=== PATIENT | male | born 1985 | race Caucasian/White ===

== ENCOUNTER 2020-03-03 08:39 | Inpatient (IN) | payer SELFPAY ==
[2020-03-03 08:46] VITALS: BP 141/97; PULSE 58; RESP 18; TEMP 36.4; O2SAT 99; BMI 22.3
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
[2020-03-03 08:54] VITALS: RESP 16
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
[2020-03-03 09:19] LABS: Bilirubin Urine Neg (NEGATIVE); Blood Urine Neg (Negative); Glucose Urine UA Norm (Normal); Ketones Urine Negative (Negative); Leukocyte Esterase Urine Negative (Negative); Nitrate Urine Negative (Negative); Protein Urine Neg (Negative); Urine Appearance Clear (CLEAR); Urine Color Yellow (Yellow); Urobilinogen Urine Norm (Negative); pH Urine 5 (5-7)
[2020-03-03 09:24] LABS: Basophils # 0.1 10^3/uL (0.0-0.1); Basophils % 0.9 %; Eosinophils # 0.5 10^3/uL (0.0-0.8); Eosinophils % 5.7 %; Hematocrit 49.5 % (42.0-52.0); Hemoglobin 16.3 g/dL (11.7-16.6); Lymphocytes # 1.9 10^3/uL (0.8-4.8); Lymphocytes % 21.9 %; Mean Corpuscular HGB Conc 32.9 g/dL (30.0-36.0); Mean Corpuscular Hemoglobin 29.8 pg (28.0-34.0); Mean Corpuscular Volume 90.5 fL (80-94); Monocytes # 0.6 10^3/uL (0.2-0.9); Neutrophils # 5.7 10^3/uL (1.8-7.7); Nucleated Red Blood Cells % 0 %; Platelet Count 244 10^3/cmm (130-400); Red Blood Count 5.47 10^6/uL (4.1-5.3); Red Cell Distribution Width 12.2 % (12.1-15.1); White Blood Count 8.8 10^3/uL (4.0-10.0)
[2020-03-03 09:27] LABS: Alanine Aminotransferase 13 U/L (0-41); Albumin Level 4.5 g/dL (3.5-5.2); Alcohol Level 77 mg/dL (0-10); Alkaline Phosphatase 92 IU/L (40-130); Anion Gap 14.8 (5-19); Aspartate Amino Transferase 20 U/L (0-40); Blood Urea Nitrogen 11 mg/dL (6-20); Calcium 8.6 mg/dL (8.5-10.5); Carbon Dioxide 26 mmol/L (22-29); Chloride 102 mmol/L (98-107); Globulin 2.3 g/dL (1.3-4.6); Glomerular Filtration Rate 86.6 mL/min (90-130); Glucose 114 mg/dL (65-115); Osmolality Calculated 285 mOsm/kg (285-295); Potassium 3.8 mmol/L (3.5-5.1); Sodium 139 mmol/L (136-145); Total Bilirubin 0.3 mg/dL (0.15-1.2); Total Protein 6.8 g/dL (6.6-8.7)
[2020-03-03 09:28] LABS: Amphetamines Screen Urine Positive (Negative); Barbiturates Screen Urine Negative (Negative); Benzodiazepines Screen Urine Negative (Negative); Cocaine Screen Urine Negative (Negative); Opiate Screen Urine Negative (Negative); PCP Screen Urine Negative (Negative); THC Screen Urine Negative (Negative)
[2020-03-03 09:35] LABS: Add Urine Culture? No; Bacteria Urine TRACE; Mucus Urine TRACE; Squamous Epithelial Cell Urine RARE (0-5); WBC Urine RARE /hpf (0-5)
[2020-03-03 09:47] LABS: Acetaminophen < 5.0 ug/mL (10-30); Salicylate < 0.3 mg/dL (3-10)
[2020-03-03 10:28] VITALS: BP 140/85; PULSE 62; RESP 16; O2SAT 98
[2020-03-03 10:34] VITALS: BP 109/72; PULSE 87; RESP 18
[2020-03-03] MEDS: nicotine 2 mg Gum BUCCAL ×2 (11:01→17:23)
[2020-03-03 14:00] VITALS: BP 120/76; PULSE 87; RESP 17
[2020-03-03] MEDS: hyDROXYzine 25 mg Capsule 50 MG PO (18:37)
[2020-03-03] MEDS: nicotine 21 mg Patch 1 PATCH TRANSDERMA (18:42)
[2020-03-03] MEDS: acetaminophen 325 mg Tablet 650 MG PO (21:07)
[2020-03-03] MEDS: trazodone 50 mg Tablet PO (21:07)
--- NOTE | 2020-03-03 21:46 | PC.NURSE ---
pt given PRN trazodone and tylenol for sleep and headache.
[2020-03-03 22:00] VITALS: BP 122/74; PULSE 88; RESP 16; TEMP 36.7; O2SAT 97
[2020-03-04 06:00] VITALS: BP 123/79; PULSE 62; RESP 16; TEMP 36.6; O2SAT 96
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
[2020-03-04 13:46] VITALS: BP 123/79; PULSE 62; RESP 16; TEMP 36.6; O2SAT 96
== END 2020-03-04 14:35 | disposition home or self-care (01) | DRG 882 ==
LOC: ER 09:17 → NP 10:15
PROVIDERS: Admitting Provider Psychiatry & Neurology Psychiatry; Emergency Provider Physician Assistant; Visit Provider Psychiatry & Neurology Psychiatry
DX: F43.25 Adjustment disorder with mixed disturbance of emotions and conduct (principal); F10.129 Alcohol abuse with intoxication, unspecified; F15.90 Other stimulant use, unspecified, uncomplicated; F17.210 Nicotine dependence, cigarettes, uncomplicated; Z81.1 Family history of alcohol abuse and dependence
CPT/HCPCS: 12345; 80053; 80306; 80307; 81001; 85025; 99284